=== PATIENT | female | born 1995 | race Caucasian/White ===

== ENCOUNTER 2017-06-02 20:19 | Emergency (ER) | payer OTHER ==
[~2017-06-02] VITALS: Ht 160 cm; Wt 104.3 kg
[2017-06-02] MEDS ORDERED: NAPROSYN500 MG PO (20:39)
[2017-06-02] MEDS ORDERED: AMOXICILLIN500 M2 PO (20:39)
== END 2017-06-02 20:41 | disposition home or self-care (01) ==
LOC: ED 20:19
DX: K08.89 Other specified disorders of teeth and supporting structures (principal)